=== PATIENT | male | born 1990 | race Hispanic/Latino ===

== ENCOUNTER 2024-10-21 10:49 | Emergency (ER) | payer OTHER ==
[~2024-10-21] VITALS: Ht 175.3 cm; Wt 120.5 kg
[2024-10-21 11:01] VITALS: TEMP 98.2
[2024-10-21 14:54] VITALS: BP 134/77; O2SAT 97
[2024-10-21] MEDS: KETOROLAC 30 MG/ML 1ML VIAL IM ONE (16:05)
[2024-10-21] MEDS: LIDOCAINE 5% (LIDODERM) PATCH TD ONE (16:05)
[2024-10-21] MEDS: ACETAMINOPHEN 500 MG TAB PO ONE (16:05)
[2024-10-21] MEDS: diazePAM 5MG TABLET PO ONE (16:05)
[2024-10-21] MEDS ORDERED: CYCL5TAB4 PO (16:32)
== END 2024-10-21 16:39 | disposition home or self-care (01) ==
LOC: M ED 10:49
DX: M54.50 Low back pain, unspecified (principal); M62.830 Muscle spasm of back; X50.0XXA Overexertion from strenuous movement or load, initial encounter; Y93.B3 Activity, free weights; Y92.89 Other specified places as the place of occurrence of the external cause; Y99.8 Other external cause status
CPT/HCPCS: 96372; 99283; J1885

== ENCOUNTER 2024-12-11 07:02 | Emergency (ER) | payer OTHER ==
[~2024-12-11] VITALS: Ht 175.3 cm; Wt 133.0 kg
[~2024-12-11 07:02] MED LIST: CYCL5TAB4 PO
[2024-12-11] MEDS ORDERED: CEPH500C PO (08:21)
[2024-12-11] MEDS ORDERED: IBUP-1022 PO (08:21)
[2024-12-11 08:30] VITALS: BP 140/63; TEMP 97; O2SAT 99
== END 2024-12-11 08:39 | disposition home or self-care (01) ==
LOC: M ED 07:02
DX: L03.115 Cellulitis of right lower limb (principal); Z79.1 Long term (current) use of non-steroidal anti-inflammatories (NSAID); Z79.2 Long term (current) use of antibiotics

== ENCOUNTER 2025-01-06 14:53 | Emergency (ER) | payer OTHER ==
[~2025-01-06] VITALS: Ht 175.3 cm; Wt 136.9 kg
[~2025-01-06 14:53] MED LIST changes: +CEPH500C PO; +IBUP-1022 PO
[2025-01-06 18:15] VITALS: BP 131/82; TEMP 97; O2SAT 98
== END 2025-01-06 18:17 | disposition home or self-care (01) ==
LOC: M ED 14:53
DX: R22.41 Localized swelling, mass and lump, right lower limb (principal); Z79.1 Long term (current) use of non-steroidal anti-inflammatories (NSAID)

== ENCOUNTER 2025-06-26 10:27 | Emergency (ER) | payer OTHER ==
[~2025-06-26] VITALS: Ht 175.3 cm; Wt 145.9 kg
[~2025-06-26 10:27] MED LIST changes: -IBUP-1022 PO; +IBUP600T42 PO
[2025-06-26] MEDS ORDERED: SEMA0.252 SQ (10:46)
[2025-06-26 12:32] VITALS: BP 110/77; TEMP 97.5; O2SAT 98
[2025-06-26] MEDS: IBUPROFEN 600 MG TAB PO ONE (12:40)
== END 2025-06-26 12:43 | disposition home or self-care (01) ==
LOC: M ED 10:27
DX: S20.221A Contusion of right back wall of thorax, initial encounter (principal); W10.8XXA Fall (on) (from) other stairs and steps, initial encounter; Y92.9 Unspecified place or not applicable; Y93.89 Activity, other specified; Y99.9 Unspecified external cause status; Z79.1 Long term (current) use of non-steroidal anti-inflammatories (NSAID); Z79.899 Other long term (current) drug therapy